=== PATIENT | male | born 1945 | race Caucasian/White ===

== ENCOUNTER 2016-05-28 11:20 | Emergency (ER) | payer MEDICARE ==
[~2016-05-28] VITALS: Ht 182.9 cm; Wt 82.0 kg
[~2016-05-28 11:20] MED LIST: ASPI81TA21 PO; ENAL20TA81 PO; FURO1TAB62 PO; HYDR12.56 PO; IPRA17I INH; METF500 PO; METO100T PO; NORT50CA PO; NORT75CA PO; POTA-243 PO; SIMV40 PO; SIMV40TA PO
[2016-05-28 11:23] VITALS: BP 178/88; PULSE 84; RESP 28; TEMP 97.3; O2SAT 96
[2016-05-28 11:43] VITALS: RESP 26; O2SAT 97
[2016-05-28] MEDS ORDERED: DEXAMETHASONE SOD PHOS 4 MG/ML VIAL IVP ONE (11:45)
[2016-05-28] MEDS ORDERED: SODIUM CHLORIDE 0.9% FLUSH 5 ML FLUSH IVF PRN (11:45)
[2016-05-28] MEDS: RESP: ALBUTEROL 2.5 MG/3 ML NEB (SCH) INH ×2 (11:53→11:54)
[2016-05-28 11:58] LABS: BASOPHIL % 0.7 % (0.0-2.0); EOSINOPHIL # 0.2 TH/MM3 (0-0.4); EOSINOPHIL % 2.9 % (0.0-4.0); HEMATOCRIT 43.2 % (39.0-51.0); HEMO FLAGS DIFF FINAL; LYMPH % 23.6 % (9.0-44.0); LYMPHOCYTE # 1.5 TH/MM3 (1.0-4.8); MEAN CELL VOLUME 95.2 FL (80.0-100.0); MEAN CORPUSCULAR HEMOGLOBIN 32.4 PG (27.0-34.0); MONO % 8.1 % (0.0-8.0); NEUT % 64.7 % (16.0-70.0); PLATELET COUNT 224 TH/MM3 (150-450); RED BLOOD COUNT 4.53 MIL/MM3 (4.50-5.90); RED CELL DISTRIBUTION WIDTH 15.2 % (11.6-17.2); WHITE BLOOD COUNT 6.2 TH/MM3 (4.0-11.0)
--- NOTE | 2016-05-28 12:11 | PD ---
HPI Chief Complaint: Respiratory Symptoms Time Seen by Provider: 12:07 Travel History International Travel<30 days: No Contact w/Intl Traveler<30days: No Traveled to known affect area: No History of Present Illness HPI 71-year-old male that presents to the ED for evaluation of respiratory complaint. Per patient she's been having shortness of breath and wheezing as well as cough and runny nose for the past week. Per patient is not getting better. Per patient he is to have an inhaler but he had some issues and he no longer uses it. Per patient he still smokes. Per patient about 2 years ago he was diagnosed with pneumonia with the same symptoms. The patient is concerned of the same. Per patient and shortness of breath gets worse when he takes a deep breath. Per patient he has no pain. Per patient he only feels like he cannot take a deep breath enough to help him breathe. He denies any recent travel. He denies any fevers chills or sweats. No sick contacts. Denies any heart issues. No chest pain. No dizziness. No abdominal pain. No nausea or vomiting. No allergies to medication. Nothing seems to make the symptoms better. Symptoms to get worse with exertion. Per patient his been progressively getting worse for the past week. He continues to smoke. PFSH Past Medical History Hx Anticoagulant Therapy: Yes (asa 81) Arthritis: No Asthma: No Autoimmune Disease: No Cancer: No Cardiovascular Problems: Yes (htn) High Cholesterol: Yes Chest Pain: No Congestive Heart Failure: No COPD: Yes Cerebrovascular Accident: No Diabetes: Yes (metformin) Patient Takes Glucophage: Yes (METFORMIN ) Endocrine: No GERD: No Genitourinary: No Headaches: Yes Hiatal Hernia: No Hypertension: Yes Immune Disorder: No Kidney Stones: No Musculoskeletal: Yes Neurologic: No Psychiatric: No Reproductive: No Respiratory: Yes (copd) Migraines: No Myocardial Infarction: Yes Radiation Therapy: No Renal Failure: No Seizures: No Sickle Cell Disease: No Thyroid Disease: No Triglycerides - High: Yes Ulcer: No Past Surgical History Abdominal Surgery: No AICD: No Arteriovenous Shunt: No Cardiac Surgery: No Ear Surgery: No Endocrine Surgery: No Eye Surgery: No Genitourinary Surgery: No Gynecologic Surgery: No Insulin Pump: No Oral Surgery: No Pacemaker: No Thoracic Surgery: No Other Surgery: No Social History Alcohol Use: No Tobacco Use: Yes Substance Use: No Allergies-Medications (Allergen,Severity, Reaction): Coded Allergies: No Known Allergies (Verified , 05/28/16) Reported Meds & Prescriptions Reported Meds & Active Scripts Active Atrovent HFA 12.9 GM Inh (Ipratropium [place]) 17 Mcg/Act Aer 2 Puff INH Q6HR PRN Nortriptyline (Nortriptyline HCl) 50 Mg Cap 50 Mg PO HS Metoprolol Tartrate 100 Mg Tab 100 Mg PO BID Lasix (Furosemide) 20 Mg Tab 20 Mg PO DAILY Klor-Con 10 (Potassium Chloride) 10 Meq Tab 10 Meq PO DAILY Vasotec (Enalapril Maleate) 20 Mg Tab 20 Mg PO DAILY Glucophage (Metformin HCl) 500 Mg Tab 500 Mg PO DAILY With a meal Simvastatin 40 Mg Tab 40 Mg PO HS Nortriptyline Hcl (Nortriptyline HCl) 75 Mg Cap 2 Cap PO HS Glucophage 500 mg (Metformin HCl) 500 Mg Tab 500 Mg PO DAILY Hydrochlorothiazide (Miscellaneous Medication) 12.5 Mg Cap 12.5 Mg PO DAILY Simvastatin 40 mg (Simvastatin) 40 Mg Tab 1 Tab PO HS Reported Aspir-Low (Aspirin) 81 Mg Tab 81 Mg PO DAILY Review of Systems General / Constitutional: No: Fever, Chills, Weight Gain, Weight Loss, Other Eyes: No: Diploplia, Blurred Vision, Photophobia, Drainage, Redness, Foreign Body Sensation, Pain, Tearing, Blind Spots, Visual changes, Blindness, Other HENT: No: Headaches, Vertigo, Lightheadedness, Sore Throat, Rhinitis, Rhinorrhea, Congestion, Nosebleed, Neck Stiffness, Neck Pain, Masses, Gingival Bleeding, Dental Difficulties, Ear Discharge, Earache, Other Cardiovascular: No: Chest Pain or Discomfort, Palpitations, Irregular Rhythm, Tachycardia, Diaphoresis, Syncope, Dyspnea on exertion, Varicosities, Edema, Cyanosis, Varicosities, Phlebitis, Claudication, Other Respiratory: Positive: Cough, Shortness of Breath, Wheezing, No: Sneezing, Orthopnea, Hemoptysis, Stridor, Night Sweats, Pleuritic Pain, Other Gastrointestinal: No: Nausea, Vomiting, Diarrhea, Abdominal Pain, Hematemesis, Hematochezia, Constipation, Changes in Bowel Habits, Indigestion, Dysphagia, Loss of Appetite, Other Genitourinary: No: Urgency, Frequency, Dysuria, Nocturia, Hematuria, Decreased Urinary Output, Oliguria, Hesitancy, Dribbling, Incontinence, Pelvic Pain, Flank Pain, Dyspareunia, Discharge, Dysmenorrhea, Menorrhagia, Metorrhagia, Vaginal Bleeding, Other Musculoskeletal: No: Myalgias, Arthralgias, Limited ROM, Weakness, Cramping, Edema, Pain, Atrophy, Other Skin: No Rash, No Itching, No Dryness, No Lumps, No Hives, No Change in Pigmentation, No Change in nails, No Alopecia, No Lesions, No Breast Lumps, No Breast Tenderness, No Breast Swelling, No Other Neurologic: No: Weakness, Dizziness, Syncope, Focal Abnormalities, Coordination Problem, Tremor, Ataxia, Headache, Change in Mentation, Slurred Speech, Paresthesia, Incontinence, Seizures, Sensory Disturbance, Other Psychiatric: No: Anxiety, Depression, Suicidal Ideations, Disorder of Thought, Mood Disorder, Substance Abuse, Homicidal Ideation, Other Endocrine: No: Heat Intolerance, Cold Intolerance, Polyuria, Polydipsia, Other Hematologic/Lymphatic: No: Easy Bruising, Lymph Node Enlargement, Other Physical Exam Narrative GENERAL: Well-nourished, well-developed patient in no apparent distress. SKIN: Warm and dry. HEAD: Atraumatic. Normocephalic. EYES: Pupils equal and round reactive to light and accommodation. No scleral icterus. No injection or drainage. ENT: No nasal bleeding or discharge. Mucous membranes pink and moist. TMs are clear with no sign of infection or perforation. No mastoid tenderness. Ear canals are intact bilaterally. No lymphadenopathy. Nostril mucosa is red and moist with clear mucus noted. No sinus tenderness to palpation noted. Tonsils are not enlarged or swollen. No ulvua Deviation. Tongue is midline. NECK: Trachea midline. No JVD. No meningeal signs noted CARDIOVASCULAR: Regular rate and rhythm. RESPIRATORY: No accessory muscle use. Wheezings heard in all lung north. Breath sounds equal bilaterally. GASTROINTESTINAL: Abdomen soft, non-tender, nondistended. Hepatic and splenic margins not palpable. MUSCULOSKELETAL: Extremities without clubbing, cyanosis, or edema. No obvious deformities. Full range of motion of the upper and lower extremities bilaterally. 2+ pulses bilaterally. NEUROLOGICAL: Awake and alert. No obvious cranial nerve deficits. Motor grossly within normal limits. Five out of 5 muscle strength in the arms and legs. Normal speech. PSYCHIATRIC: Appropriate mood and affect; insight and judgment normal. Data Data Last Documented VS Vital Signs Date Time Temp Pulse Resp B/P Pulse Ox O2 Delivery O2 Flow Rate FiO2 05/28/16 11:43 26 97 Room Air 05/28/16 11:23 97.3 84 178/88 Orders Basic Metabolic Panel (Bmp) (05/28/16 11:36) Complete Blood Count With Diff (05/28/16 11:36) Chest, Single Ap (05/28/16 11:36) Ecg Monitoring (05/28/16 11:36) Iv Access Insert/Monitor (05/28/16 11:36) Oximetry (05/28/16 11:36) Oxygen Administration (05/28/16 11:36) Dexamethasone Inj (Decadron Inj) (05/28/16 11:45) Albuterol Neb (Albuterol Neb) (05/28/16 11:45) Sodium Chloride 0.9% Flush (Ns Flush) (05/28/16 11:45) Arterial Blood Gas (Abg) (05/28/16 ) Albuterol Neb (Albuterol Neb) (05/28/16 13:45) Labs Laboratory Tests Test 05/28/16 05/28/16 11:40 12:38 White Blood Count 6.2 TH/MM3 Red Blood Count 4.53 MIL/MM3 Hemoglobin 14.7 GM/DL Hematocrit 43.2 % Mean Corpuscular Volume 95.2 FL Mean Corpuscular Hemoglobin 32.4 PG Mean Corpuscular Hemoglobin 34.0 % Concent Red Cell Distribution Width 15.2 % Platelet Count 224 TH/MM3 Mean Platelet Volume 7.9 FL Neutrophils (%) (Auto) 64.7 % Lymphocytes (%) (Auto) 23.6 % Monocytes (%) (Auto) 8.1 % Eosinophils (%) (Auto) 2.9 % Basophils (%) (Auto) 0.7 % Neutrophils # (Auto) 4.0 TH/MM3 Lymphocytes # (Auto) 1.5 TH/MM3 Monocytes # (Auto) 0.5 TH/MM3 Eosinophils # (Auto) 0.2 TH/MM3 Basophils # (Auto) 0.0 TH/MM3 CBC Comment DIFF FINAL Differential Comment Sodium Level 139 MEQ/L Potassium Level 4.8 MEQ/L Chloride Level 102 MEQ/L Carbon Dioxide Level 32.3 MEQ/L Anion Gap 5 MEQ/L Blood Urea Nitrogen 16 MG/DL Creatinine 0.96 MG/DL Estimat Glomerular Filtration 77 ML/MIN Rate Random Glucose 169 MG/DL Calcium Level 9.5 MG/DL Blood Gas Puncture Site RT RADIAL Blood Gas Patient Temperature 98.6 Blood Gas HCO3 27 mmol/L Blood Gas Base Excess 2.3 mmol/L Blood Gas Oxygen Saturation 90 % Arterial Blood pH 7.40 Arterial Blood Partial 44 mmHg Pressure CO2 Arterial Blood Partial 68 mmHG Pressure O2 Arterial Blood Oxygen Content 18.7 Vol % Arterial Blood 2.3 % Carboxyhemoglobin Arterial Blood Methemoglobin 1.9 % Blood Gas Hemoglobin 14.8 G/DL Oxygen Delivery Device RA Blood Gas Inspired Oxygen 21 % MDM Medical Decision Making Medical Screen Exam Complete: Yes Emergency Medical Condition: Yes Medical Record Reviewed: Yes Interpretation(s) CBC & BMP Diagram 05/28/16 11:40 Last Impressions Chest X-Ray 05/28/16 1136 Signed Impressions: Service Date/Time: Saturday, May 28, 2016 12:01 - CONCLUSION: No acute cardiopulmonary disease identified. Nabil Koch MD Differential Diagnosis COPD versus pneumonia versus hypoxia versus respiratory failure versus bronchitis Narrative Course 71-year-old male that presents to the ED for evaluation of shortness of breath and cold-like symptoms. Patient was properly examined and was found to have signs and symptoms consistent appears to be COPD exacerbation with possible pneumonia. Labs and imaging ordered. Patient was given breathing treatments here as well as Solu-Medrol. Labs and imaging showed no sign of acute disease. Labs essentially unremarkable. ABG reassuring. Patient was reassessed after 3 breathing treatments and does feel much improved. Wheezing has dramatically decreased. Patient was reassured that this is likely acute bronchitis which is likely worse because of his continued smoking and COPD. At this time I think she is safe for discharge. Patient will be discharged home with prescription for prednisone, albuterol inhaler, azithromycin. I strongly encouraged him to consider stop smoking. He understands that he is not welcome to come back if anything worsens. See ED for any worsening symptoms. Follow up with PCP. Diagnosis Primary Impression: Bronchitis Additional Impression: COPD (chronic obstructive pulmonary disease) Qualified Code: J44.1 - Chronic obstructive pulmonary disease with acute exacerbation Patient Instructions: General Instructions Additional Instructions: Motrin and Tylenol for pain and fever. You can use [id number] antihistamine as well as well as Mucinex as needed for runny nose and congestion. Cough drops for cough as needed. Drink plenty of fluids. Follow-up with PCP. See ED for worsening symptoms. Med/Other Pt SpecificInfo: Prescription(s) given Scripts Albuterol 8.5 GM Inh (Proair Hfa 8.5 GM Inh)90 Mcg/Act Aer2 Puff INH Q4-6H PRN ( SHORTNESS OF BREATH) #1 INHALER 108 mcg/actuation Prov:Douglas Murguia MD 05/28/16 Azithromycin 250 Mg Hve559 Mg PO DIRECTED #6 TAB Take 2 tabs (500 mg) on day 1 then 1 tab daily x 4 days. Prov:Douglas Murguia MD 05/28/16 Prednisone 20 Mg Tab20 Mg PO BID #10 TAB Prov:Douglas Murguia MD 05/28/16 Disposition: 01 DISCHARGE HOME Condition: Stable Stephen Byrd May 28, 2016 12:11
[2016-05-28 12:48] LABS: BLOOD GAS BASE EXCESS 2.3 mmol/L (-2-2); BLOOD GAS CARBOXYHEMOGLOBIN 2.3 % (0-4); BLOOD GAS HCO3 27 mmol/L (22-26); BLOOD GAS METHEMOGLOBIN 1.9 % (0-2); BLOOD GAS O2 HGB SATURATION 90 % (90-100); BLOOD GAS OXYGEN CONTENT 18.7 Vol % (12.0-20.0); BLOOD GAS PCO2 44 mmHg (38-42); BLOOD GAS PO2 68 mmHG (61-120); BLOOD GAS TOTAL HGB 14.8 G/DL (12.0-16.0); CRITICAL VALUE NO; TEMP CORR TO 98.6
[2016-05-28 12:49] LABS: DRAW SITE RT RADIAL; FIO2 21 %; NUMBER OF ARTERIAL PUNCTURES 2; OXYGEN DEVICE RA; STAT YES; ULNAR PULSE PRESENT
[2016-05-28 13:04] LABS: BICARBONATE 32.3 MEQ/L (21.0-32.0); POTASSIUM 4.8 MEQ/L (3.5-5.1)
--- NOTE | 2016-05-28 13:18 | RADRPT ---
EXAM DATE/TIME: 05/28/2016 12:01 [facility] COMPARISON: CHEST SINGLE AP, May 27, 2015, 16:19. INDICATIONS : Short of Breath MEDICAL HISTORY : Diabetes mellitus type II. Chronic obstructive pulmonary disease. SURGICAL HISTORY : None. ENCOUNTER: Initial ACUITY: 1 day PAIN SCORE: 0/10 LOCATION: Bilateral chest FINDINGS: 2 AP views chest. The lungs are clear. Cardiomediastinal silhouette within normal limits. No evidence of pleural effusion or pneumothorax. CONCLUSION: No acute cardiopulmonary disease identified. Nabil Koch MD on May 28, 2016 at 13:16 Board Certified Radiologist. This report was verified electronically.
[2016-05-28] MEDS ORDERED: PRED20 PO (13:39)
[2016-05-28] MEDS ORDERED: ALBUAER3 INH (13:39)
[2016-05-28] MEDS ORDERED: AZIT250T3 PO (13:39)
[2016-05-28] MEDS ORDERED: RESP: ALBUTEROL 2.5 MG/3 ML NEB (SCH) INH ONE (13:45)
[2016-05-28 14:33] VITALS: BP 125/61; PULSE 68; RESP 20; O2SAT 97
[2016-05-30] MEDS ORDERED: AMIT75TA2 PO (09:42)
== END 2016-05-28 15:16 | disposition home or self-care (01) ==
LOC: NEPE 11:20
DX: J40 Bronchitis, not specified as acute or chronic (principal); J44.1 Chronic obstructive pulmonary disease with (acute) exacerbation; I10 Essential (primary) hypertension; E11.9 Type 2 diabetes mellitus without complications; E78.00 Pure hypercholesterolemia, unspecified; E78.1 Pure hyperglyceridemia; Z72.0 Tobacco use; Z79.82 Long term (current) use of aspirin; Z79.84 Long term (current) use of oral hypoglycemic drugs; Z87.09 Personal history of other diseases of the respiratory system; Z87.39 Personal history of other diseases of the musculoskeletal system and connective tissue
CPT/HCPCS: 36600; 71010; 80048; 82805; 85025; 94640; 94664; 96374; 99283; J1100; J7613

== ENCOUNTER 2016-09-06 10:41 | Emergency (ER) | payer MEDICARE ==
[~2016-09-06] VITALS: Ht 182.9 cm; Wt 80.0 kg
[~2016-09-06 10:41] MED LIST changes: +ALBUAER3 INH; +AMIT75TA2 PO; +AZIT250T3 PO; -NORT50CA PO; +PRED20 PO
[2016-09-06 10:46] VITALS: BP 163/72; PULSE 84; RESP 16; TEMP 97.7; O2SAT 99
[2016-09-06] MEDS ORDERED: RESP: ALBUTEROL 2.5 MG/IPRATROPIUM 0.5 MG NEB (SCH) INH ONE (11:15)
[2016-09-06] MEDS ORDERED: SODIUM CHLORIDE 0.9% FLUSH 10 ML FLUSH IVF PRN (11:15)
--- NOTE | 2016-09-06 11:15 | PD ---
HPI Chief Complaint: Respiratory Symptoms Time Seen by Provider: 11:07 Travel History International Travel<30 days: No Contact w/Intl Traveler<30days: No Traveled to known affect area: No History of Present Illness HPI 71-year-old male with history of VT, hypertension, COPD, presents to the ER today for several months history of coughing, nasal congestion and runny nose, dyspnea on exertion intermittently. He states that he is here because he just wants to get it fixed at this point. He denies any fevers, vomiting, chest pains, or any other symptoms. He has been using Pro Air but that doesn't help. Modifying Factors: None Associated Signs & Symptoms: Cough, congestion, dyspnea on exertion Risk Factors: COPD PFSH Past Medical History Hx Anticoagulant Therapy: Yes (asa 81) Arthritis: No Asthma: No Autoimmune Disease: No Cancer: No Cardiovascular Problems: Yes (VT) High Cholesterol: Yes Chest Pain: No Congestive Heart Failure: No COPD: Yes Cerebrovascular Accident: No Diabetes: Yes Patient Takes Glucophage: Yes Endocrine: No GERD: No Genitourinary: No Headaches: Yes Hiatal Hernia: No Hypertension: Yes Immune Disorder: No Kidney Stones: No Musculoskeletal: Yes Neurologic: No Psychiatric: No Reproductive: No Respiratory: Yes (COPD) Migraines: No Myocardial Infarction: Yes Radiation Therapy: No Renal Failure: No Seizures: No Sickle Cell Disease: No Thyroid Disease: No Triglycerides - High: Yes Ulcer: No Tetanus Vaccination: < 5 Years Past Surgical History Abdominal Surgery: No AICD: No Arteriovenous Shunt: No Cardiac Surgery: No Ear Surgery: No Endocrine Surgery: No Eye Surgery: No Genitourinary Surgery: No Gynecologic Surgery: No Insulin Pump: No Oral Surgery: No Pacemaker: No Thoracic Surgery: No Other Surgery: No Social History Alcohol Use: No Tobacco Use: Yes Substance Use: No Allergies-Medications (Allergen,Severity, Reaction): Coded Allergies: No Known Allergies (Verified , 09/06/16) Reported Meds & Prescriptions Reported Meds & Active Scripts Active Amitriptyline (Amitriptyline HCl) 75 Mg Tab 75 Mg PO HS Proair Hfa 8.5 GM Inh (Albuterol Sulfate) 90 Mcg/Act Aer 2 Puff INH Q4-6H PRN 108 mcg/actuation Atrovent HFA 12.9 GM Inh (Ipratropium [place]) 17 Mcg/Act Aer 2 Puff INH Q6HR PRN Metoprolol Tartrate 100 Mg Tab 100 Mg PO BID Lasix (Furosemide) 20 Mg Tab 20 Mg PO DAILY Klor-Con 10 (Potassium Chloride) 10 Meq Tab 10 Meq PO DAILY Vasotec (Enalapril Maleate) 20 Mg Tab 20 Mg PO DAILY Glucophage (Metformin HCl) 500 Mg Tab 500 Mg PO DAILY With a meal Simvastatin 40 Mg Tab 40 Mg PO HS Nortriptyline Hcl (Nortriptyline HCl) 75 Mg Cap 2 Cap PO HS Glucophage 500 mg (Metformin HCl) 500 Mg Tab 500 Mg PO DAILY Hydrochlorothiazide (Miscellaneous Medication) 12.5 Mg Cap 12.5 Mg PO DAILY Simvastatin 40 mg (Simvastatin) 40 Mg Tab 1 Tab PO HS Reported Aspir-Low (Aspirin) 81 Mg Tab 81 Mg PO DAILY Review of Systems Except as stated in HPI: all other systems reviewed are Neg Physical Exam Narrative GENERAL: Well-developed elderly white male patient in mild respiratory distress. Awake and oriented 3. SKIN: Focused skin assessment warm/dry. HEAD: Atraumatic. Normocephalic. EYES: Pupils equal and round. No scleral icterus. No injection or drainage. ENT: No nasal bleeding or discharge. Mucous membranes pink and moist. NECK: Trachea midline. No JVD. CARDIOVASCULAR: Regular rate and rhythm. No murmur appreciated. RESPIRATORY: No accessory muscle use. Decreased throughout. Breath sounds equal bilaterally. No wheezes, or crackles. GASTROINTESTINAL: Abdomen soft, non-tender, nondistended. Hepatic and splenic margins not palpable. MUSCULOSKELETAL: No obvious deformities. No clubbing. No cyanosis. No edema. NEUROLOGICAL: Awake and alert. No obvious cranial nerve deficits. Motor grossly within normal limits. Normal speech. PSYCHIATRIC: Appropriate mood and affect; insight and judgment normal. Data Data Last Documented VS Vital Signs Date Time Temp Pulse Resp B/P Pulse Ox O2 Delivery O2 Flow Rate FiO2 09/06/16 11:23 96 Room Air 09/06/16 10:46 97.7 84 16 163/72 Orders Complete Blood Count With Diff (09/06/16 11:10) Comprehensive Metabolic Panel (09/06/16 11:10) B-Type Natriuretic Peptide (09/06/16 11:10) Iv Access Insert/Monitor (09/06/16 11:10) Electrocardiogram (09/06/16 11:10) Ecg Monitoring (09/06/16 11:10) Oximetry (09/06/16 11:10) Oxygen Administration (09/06/16 11:10) Chest, Single Ap (09/06/16 11:10) Sodium Chloride 0.9% Flush (Ns Flush) (09/06/16 11:15) Albuterol-Ipratropium Neb (Duoneb Neb) (09/06/16 11:15) Labs Laboratory Tests Test 09/06/16 11:20 White Blood Count 6.2 TH/MM3 Red Blood Count 4.35 MIL/MM3 Hemoglobin 14.2 GM/DL Hematocrit 41.5 % Mean Corpuscular Volume 95.2 FL Mean Corpuscular Hemoglobin 32.7 PG Mean Corpuscular Hemoglobin 34.3 % Concent Red Cell Distribution Width 15.0 % Platelet Count 197 TH/MM3 Mean Platelet Volume 8.2 FL Neutrophils (%) (Auto) 66.0 % Lymphocytes (%) (Auto) 25.5 % Monocytes (%) (Auto) 6.6 % Eosinophils (%) (Auto) 1.4 % Basophils (%) (Auto) 0.5 % Neutrophils # (Auto) 4.1 TH/MM3 Lymphocytes # (Auto) 1.6 TH/MM3 Monocytes # (Auto) 0.4 TH/MM3 Eosinophils # (Auto) 0.1 TH/MM3 Basophils # (Auto) 0.0 TH/MM3 CBC Comment DIFF FINAL Differential Comment Sodium Level 139 MEQ/L Potassium Level 4.7 MEQ/L Chloride Level 103 MEQ/L Carbon Dioxide Level 31.0 MEQ/L Anion Gap 5 MEQ/L Blood Urea Nitrogen 18 MG/DL Creatinine 0.89 MG/DL Estimat Glomerular Filtration 84 ML/MIN Rate Random Glucose 206 MG/DL Calcium Level 9.4 MG/DL Total Bilirubin 0.3 MG/DL Aspartate Amino Transf 46 U/L (AST/SGOT) Alanine Aminotransferase 43 U/L (ALT/SGPT) Alkaline Phosphatase 60 U/L B-Type Natriuretic Peptide 79 PG/ML Total Protein 6.9 GM/DL Albumin 3.5 GM/DL [facility] Medical Decision Making Medical Screen Exam Complete: Yes Emergency Medical Condition: Yes Medical Record Reviewed: Yes Interpretation(s) EKG shows NSR, no ST elevation or depression, and no arrhythmias. No significant T-wave inversions. Laboratory Tests Test 09/06/16 11:20 Red Blood Count 4.35 MIL/MM3 (4.50-5.90) Estimat Glomerular Filtration 84 ML/MIN (>89) Rate Random Glucose 206 MG/DL (74-106) Aspartate Amino Transf 46 U/L (15-37) (AST/SGOT) Last 24 hours Impressions Chest X-Ray 09/06/16 1110 Signed Impressions: Service Date/Time: Tuesday, September 06, 2016 11:11 - CONCLUSION: The lungs are clear. Satya Beatty MD Differential Diagnosis Coughing, shortness of breath, nasal congestionURI versus bronchitis versus pneumonia versus COPD exacerbation versus CHF Narrative Course Chest x-ray did not show any signs of acute pulmonary processes. Pulmonary exam is fairly unremarkable. Patient was given a albuterol treatment. Vital signs remained stable in the ER. At this point, I suspect underlying bronchitis which likely is somewhat chronic. My plan would be to give him treatment for bronchitis and have him follow-up with primary care physician. Return for new issues as needed. The plan has been discussed with him and he states understanding. Diagnosis Primary Impression: Bronchitis Med/Other Pt SpecificInfo: Prescription(s) given Scripts Albuterol 6.7 GM Inh (Proventil Hfa 6.7 GM Inh)90 Mcg/Act Aer2 Puff INH Q4-6H PRN (SHORTNESS OF BREATH) #1 INHALER Ref 0 Prov:Ibis Hanson MD 09/06/16 Prednisone 50 Mg Tab50 Mg PO DAILY #5 TAB Ref 0 Prov:Ibis Hanson MD 09/06/16 Doxycycline Hyclate 100 Mg [id number] Mg PO BID #20 CAP Ref 0 Prov:Ibis Hanson MD 09/06/16 Disposition: 01 DISCHARGE HOME Condition: Stable Ibis Hanson MD Sep 06, 2016 11:15
[2016-09-06 11:23] VITALS: O2SAT 96
--- NOTE | 2016-09-06 11:31 | RADRPT ---
EXAM DATE/TIME: 09/06/2016 11:11 [facility] COMPARISON: CHEST SINGLE AP, May 28, 2016, 12:01. INDICATIONS : Shortness of breath, cough, and cold symptoms. MEDICAL HISTORY : Diabetes mellitus type II. Chronic obstructive pulmonary disease. SURGICAL HISTORY : None. ENCOUNTER: Initial ACUITY: 4 - 6 days PAIN SCORE: 0/10 LOCATION: Bilateral chest FINDINGS: A single view of the chest demonstrates the lungs to be symmetrically aerated without evidence of mas s, infiltrate or effusion. The cardiomediastinal contours are unremarkable. Osseous structures are intact. CONCLUSION: The lungs are clear. Satya Beatty MD on September 06, 2016 at 11:29 Board Certified Radiologist. This report was verified electronically.
[2016-09-06 11:51] LABS: AUTOMATED NEUTROPHIL # 4.1 TH/MM3 (1.8-7.7); BASOPHIL % 0.5 % (0.0-2.0); EOSINOPHIL # 0.1 TH/MM3 (0-0.4); EOSINOPHIL % 1.4 % (0.0-4.0); HEMATOCRIT 41.5 % (39.0-51.0); HEMO FLAGS DIFF FINAL; LYMPH % 25.5 % (9.0-44.0); LYMPHOCYTE # 1.6 TH/MM3 (1.0-4.8); MEAN CELL VOLUME 95.2 FL (80.0-100.0); MEAN CORPUSCULAR HEMOGLOBIN 32.7 PG (27.0-34.0); MEAN CORPUSCULAR HGB CONC 34.3 % (32.0-36.0); MONO % 6.6 % (0.0-8.0); PLATELET COUNT 197 TH/MM3 (150-450); RED BLOOD COUNT 4.35 MIL/MM3 (4.50-5.90); WHITE BLOOD COUNT 6.2 TH/MM3 (4.0-11.0)
[2016-09-06 12:08] LABS: ALKALINE PHOSPHATASE 60 U/L (45-117); ALT (GPT) 43 U/L (12-78); TOTAL BILIRUBIN ADULT 0.3 MG/DL (0.2-1.0)
[2016-09-06 12:13] LABS: ANION GAP 5 MEQ/L (5-15); AST (GOT) 46 U/L (15-37); BLOOD UREA NITROGEN 18 MG/DL (7-18); CHLORIDE 103 MEQ/L (98-107); GLOMERULAR FILTRATION RATE 84 ML/MIN (>89); POTASSIUM 4.7 MEQ/L (3.5-5.1); SODIUM (NA) 139 MEQ/L (136-145)
[2016-09-06] MEDS ORDERED: ALBU6.7H INH (12:37)
[2016-09-06] MEDS ORDERED: DOXY100C PO (12:37)
[2016-09-06] MEDS ORDERED: PRED50 PO (12:37)
[2016-09-06 12:54] VITALS: BP 152/74
--- NOTE | 2016-09-07 20:05 | EKG ---
Date Performed: 09/06/2016 Time Performed: 11:28:32 PTAGE: 71 years EKG: SINUS BRADYCARDIA BORDERLINE RIGHT AXIS DEVIATION LOW QRS VOLTAGE IN PRECORDIAL LEADS POSSI BLE INFERIOR MYOCARDIAL INFARCTION MODERATE T-WAVE ABNORMALITY, CONSIDER ANTEROLATERAL ISCHEMIA ABNOR MAL ECG PREVIOUS TRACING : 09/06/2016 11.27 Compared to prior tracing probably no significant change DOCTOR: Wade Johnson Interpretating Date/Time 09/07/2016 20:04:49
== END 2016-09-06 12:56 | disposition home or self-care (01) ==
LOC: NEPC 10:41
DX: J40 Bronchitis, not specified as acute or chronic (principal); I10 Essential (primary) hypertension; R94.31 Abnormal electrocardiogram [ECG] [EKG]; R06.09 Other forms of dyspnea; J44.9 Chronic obstructive pulmonary disease, unspecified; E11.9 Type 2 diabetes mellitus without complications; Z72.0 Tobacco use; Z79.01 Long term (current) use of anticoagulants
CPT/HCPCS: 71010; 80053; 83880; 85025; 93005; 94664